=== PATIENT | male | born 1965 | race Caucasian/White ===

== ENCOUNTER → 2021-02-08 | Outpatient (CLI) | payer BC ==
--- NOTE | 2021-02-08 10:32 | XR ---
EXAMINATION TYPE: XR chest 2V DATE OF EXAM: 02/08/2021 COMPARISON: NONE TECHNIQUE: PA and lateral views submitted. HISTORY: Cough FINDINGS: The lungs are clear and there is no pneumothorax, pleural effusion, or focal pneumonia. Heart size normal. No overt failure. Biapical pleural thickening. Hypertrophic changes of the spine. Mild hyperi nflation. IMPRESSION: 1. No acute process. Correlate for mild COPD.
== END | disposition home or self-care (01) ==
LOC: RADXRMAIN 07:53
PROVIDERS: ATTEND Family Medicine
DX: Z00.00 Encounter for general adult medical examination without abnormal findings (principal); Z87.891 Personal history of nicotine dependence
CPT/HCPCS: 71046

== ENCOUNTER → 2022-11-25 | Outpatient (CLI) | payer BC ==
--- NOTE | 2022-11-25 16:29 | P.SLEEP ---
History of Present Illness H&P Date: 11/25/22 Chief Complaint: Snoring This is a 57-year-old male patient, coming in to the sleep Center to be evaluated for sleep apnea. The patient works out of his house. He works on a computer. He is alert and awake and is functional during the day. He goes to bed at around 11 PM and wakes up 5 AM in the morning. On weekends, [facility] midnight and 6:30 AM in the morning. It takes him less than 30 minutes to fall asleep. No alcoholism. No substance abuse. No smoking. He snores very loud. His is very much bothered by his loud snoring to the point where she has moved out of the bedroom. . The also stated that he quits breathing at nighttime. The patient denies waking up because of his normal. He denies waking up choking or gasping for air. No grinding of the teeth. No urge to urinate during bedtime. No insomnia. No palpitations. No chest pain. No heartburn. No issues with memory or concentration. The patient does not have any other comorbid conditions. He doesn't take any medications. He doesn't take any naps during the day. His weight has remained stable over the past 10 years. No sleep paralysis. No hallucinations. No cataplexy. He snores less when he is on his side. He is a nose breather. Denies having a dry mouth in the morning. No sinus ALLERGIES. No postnasal drainage. He has a few fractures in his nose yet he seems to be a nose breather for now. Review of Systems Constitutional: Reports as per HPI Eyes: denies as per HPI, denies blurred vision, denies bulging eye, denies decreased vision, denies diplopia, denies discharge, denies dry eye, denies irri tation, denies itching, denies pain, denies photophobia, denies loss of peripheral vision, denies loss of vision, denies tunnel vision/blind spots Ears: deny: decreased hearing, ear discharge, earache, tinnitus Ears, nose, mouth and throat: Reports as per HPI Breasts: absent: as per HPI, gynecomastia Cardiovascular: Reports as per HPI Respiratory: Reports snoring Gastrointestinal: Reports as per HPI Genitourinary: Reports as per HPI Musculoskeletal: Reports as per HPI Musculoskeletal: absent: ankle pain, ankle stiffness, ankle swelling Integumentary: Reports as per HPI Neurological: Reports as per HPI Psychiatric: Reports as per HPI Endocrine: Reports as per HPI Hematologic/Lymphatic: Reports as per HPI Allergic/Immunologic: Reports as per HPI Physical Exam BP is 135/87, pulse is 76, respirations 16, temperature is 90.8, saturations 96% on room air, height is 5 feet 9 inches, weight is 196 pounds, [place] score is at 4, body mass index is 28.5, the size of the neck is 17.5 inches. The patient appeared well nourished and normally developed. Vital signs as documented. Head exam is unremarkable. No scleral icterus or corneal arcus noted. Neck is without jugular venous distension, thyromegaly, or carotid bruits. The patient has a Mallampati class IV. No overbite. No micrognathia. No anatomic abnormalities involving the upper airways. He does have bilateral tonsillar enlargement. Carotid upstrokes are brisk bilaterally. Lungs are clear to auscultation and percussion. Cardiac exam reveals the PMI to be normally sized and situated. Rhythm is regular. First and second heart sounds normal. No murmurs, rubs or gallops. Abdominal exam reveals normal bowel sounds, no masses, no organomegaly and no aortic enlargement. Extremities are nonedematous and both femoral and pedal pulses are normal.Examination of the skin revealed no evidence of significant rashes, suspicious appearing nevi or other concerning lesions.Neurologically, the patient is awake and alert and the patient does not have any focal neurological deficit. Cranial nerves are essentially intact. Assessment and Plan Plan: Loud snoring with witnessed apneas as reported by the . Tonsillar enlargement with significant crowding of the posterior pharynx and Mallampati class IV Limited fatigue, no major sleepiness and the patient's [place] score is at 4 No comorbid conditions Plan Sleep on the side and keep the head of the bed elevated at around 20-25 Avoid alcohol drinking at least 3 hours prior to going to bed Maintain a good 7-8 hours of sleep every night and avoid sleep deprivation Proceed with a home sleep study to screen this patient for obstructive sleep apnea. Discussed various other therapies for snoring. May consider a snore guard oral appliance if this leads study comes back negative for sleep apnea. He has adequate nasal patency. Does not take any form of muscle relaxants or any other medication that could potentially contribute to his snore. My overall suspicion for significant sleep apnea is low We'll continue to follow Sleep Note - Sleep Note Sleep Note: Temperature: Pulse Rate: Respiratory Rate: Blood Pressure: SpO2: Height: Weight: BMI: Neck Circumference:
== END ==
LOC: SLEEP 15:34
PROVIDERS: ATTEND Internal Medicine Critical Care Medicine
DX: R06.83 Snoring (principal); J35.1 Hypertrophy of tonsils; R53.83 Other fatigue
CPT/HCPCS: 99211